=== PATIENT | female | born 1970 | race Caucasian/White ===

== ENCOUNTER 2017-08-01 14:52 | Emergency (ER) | payer MEDICAID ==
[~2017-08-01] VITALS: Ht 160 cm; Wt 66.0 kg
[2017-08-01] MEDS ORDERED: ONDANSETRON HCL 4MG/2ML VIAL IV ONE (15:45)
[2017-08-01] MEDS ORDERED: MORPHINE SULFATE 4 MG/ML CPJ (NOT FOR IM USE) IV ONE ×2 (15:45→19:00)
[2017-08-01 16:11] LABS: HEMATOCRIT. 33.3 % (36.0-48.0); HEMOGLOBIN. 10.6 g/dL (12.0-16.0); MEAN CORPUSCULAR HEMOGLOBIN 24.6 pg (28.0-32.0); MEAN CORPUSCULAR VOLUME 77.4 fL (81.0-99.0); MEAN PLATELET VOLUME 7.8 fl (7.4-10.4); PLATELET 301 x1000/uL (130-400); RED CELL DISTRIBUTION WIDTH 25.6 % (11.6-14.6)
[2017-08-01 16:17] LABS: CHLORIDE 109 mEq/L (98-107)
[2017-08-01 16:18] LABS: KETONES URINE NEGATIVE (NEGATIVE); LEUKOCYTE ESTERASE URINE 1+ (NEGATIVE); NITRITE URINE NEGATIVE (NEGATIVE); OCCULT BLOOD URINE 3+ (NEGATIVE); PROTEIN URINE 4+ (NEGATIVE); SPECIFIC GRAVITY URINE 1.035 (1.005-1.030); UROBILINOGEN URINE 0.2 E.U./dL (0.2-1.0)
[2017-08-01 16:21] LABS: COLOR URINE RED (YELLOW)
[2017-08-01 16:22] LABS: HCG SCREEN NEGATIVE
[2017-08-01 16:22] LABS: CLARITY URINE TURBID (CLEAR)
[2017-08-01 16:27] LABS: CARBON DIOXIDE 23 mEq/L (21-32)
[2017-08-01 17:17] LABS: PLATELET ESTIMATE NORMAL
[2017-08-01] MEDS ORDERED: ENOX100D4 SQ (19:59)
[2017-08-01] MEDS ORDERED: KETOROLAC 30MG/ML VIAL IV ONE (20:00)
[2017-08-01 21:55] VITALS: BP 107/50
== END 2017-08-01 22:02 | disposition home or self-care (01) ==
LOC: ER 15:18
DX: D25.9 Leiomyoma of uterus, unspecified (principal); N85.8 Other specified noninflammatory disorders of uterus
CPT/HCPCS: 36415; 76830; 76856; 80053; 81001; 84703; 85025; 96374; 96375; 96376; 99285; J1885; J2270; J2405; Z7610

== ENCOUNTER 2018-08-12 05:24 | Emergency (ER) | payer MEDICAID ==
[~2018-08-12] VITALS: Ht 165.1 cm; Wt 92.7 kg
[~2018-08-12 05:24] MED LIST: ENOX100D4 SQ
[2018-08-12] MEDS ORDERED: SODIUM CHLORIDE 0.9% 1,000 ML IV ONE (06:32)
[2018-08-12] MEDS ORDERED: KETOROLAC 30MG/ML VIAL IV ONE (06:45)
[2018-08-12 06:46] VITALS: BP 106/57
[2018-08-12 06:48] LABS: HEMATOCRIT. 31.3 % (36.0-48.0); HEMOGLOBIN. 9.6 g/dL (12.0-16.0); MEAN CORPUSCULAR HEMOGLOBIN 22.3 pg (28.0-32.0); MEAN CORPUSCULAR VOLUME 72.5 fL (81.0-99.0); MEAN PLATELET VOLUME 7.6 fl (7.4-10.4); PLATELET 348 x1000/uL (130-400); RED BLOOD CELL COUNT 4.32 mill/uL (4.2-5.4); RED CELL DISTRIBUTION WIDTH 18.7 % (11.6-14.6)
[2018-08-12 06:52] LABS: CHLORIDE 110 mEq/L (98-107)
[2018-08-12 06:55] LABS: INR 0.9; PARTIAL THROMBOPLASTIN TIME 23.3 sec (23.4-31.0); PROTHROMBIN TIME 9.5 sec (9.1-11.1)
[2018-08-12 06:58] LABS: HCG SCREEN NEGATIVE
[2018-08-12 07:09] LABS: CLARITY URINE CLEAR (CLEAR); COLOR URINE YELLOW (YELLOW); KETONES URINE NEGATIVE (NEGATIVE); LEUKOCYTE ESTERASE URINE NEGATIVE (NEGATIVE); NITRITE URINE NEGATIVE (NEGATIVE); OCCULT BLOOD URINE TRACE (NEGATIVE); PH URINE 6.5 (4.5-8.0); PROTEIN URINE TRACE (NEGATIVE); SPECIFIC GRAVITY URINE 1.015 (1.005-1.030); UROBILINOGEN URINE 0.2 E.U./dL (0.2-1.0)
[2018-08-12 07:21] LABS: PLATELET ESTIMATE NORMAL
== END 2018-08-12 10:20 | disposition home or self-care (01) ==
LOC: ER 06:09
DX: G89.29 Other chronic pain (principal); R10.9 Unspecified abdominal pain; R10.2 Pelvic and perineal pain; D64.9 Anemia, unspecified; E87.8 Other disorders of electrolyte and fluid balance, not elsewhere classified; D21.9 Benign neoplasm of connective and other soft tissue, unspecified; Z79.899 Other long term (current) drug therapy
CPT/HCPCS: 36415; 71045; 74177; 76830; 76856; 80053; 81003; 81025; 83690; 84703; 85025; 85610; 85730; 96374; 99284; J1885; J7030

== ENCOUNTER 2019-06-29 13:10 | Emergency (ER) | payer MEDICAID ==
[~2019-06-29] VITALS: Ht 157.5 cm; Wt 80.0 kg
[2019-06-29 13:20] VITALS: BP 135/67
[2019-06-29 14:00] LABS: HEMATOCRIT. 29.2 % (36.0-48.0); HEMOGLOBIN. 8.7 g/dL (12.0-16.0); MEAN CORPUSCULAR HEMOGLOBIN 18.8 pg (28.0-32.0); MEAN CORPUSCULAR VOLUME 62.7 fL (81.0-99.0); MEAN PLATELET VOLUME 8.4 fl (7.4-10.4); PLATELET 314 x1000/uL (130-400); RED BLOOD CELL COUNT 4.65 mill/uL (4.2-5.4)
[2019-06-29 14:06] LABS: CHLORIDE 107 mEq/L (98-107)
[2019-06-29 14:07] LABS: PROTHROMBIN TIME 10.3 sec (9.6-11.0)
[2019-06-29 14:56] LABS: PLATELET ESTIMATE NORMAL
[2019-06-29 16:01] LABS: CLARITY URINE CLEAR (CLEAR); COLOR URINE YELLOW (YELLOW); KETONES URINE NEGATIVE (NEGATIVE); LEUKOCYTE ESTERASE URINE NEGATIVE (NEGATIVE); NITRITE URINE NEGATIVE (NEGATIVE); OCCULT BLOOD URINE 3+ (NEGATIVE); PROTEIN URINE 1+ (NEGATIVE); SPECIFIC GRAVITY URINE 1.022 (1.005-1.030); UROBILINOGEN URINE 0.2 E.U./dL (0.2-1.0)
== END 2019-06-29 15:29 | disposition left against medical advice (07) ==
LOC: ER 13:10
DX: D25.9 Leiomyoma of uterus, unspecified (principal)
CPT/HCPCS: 36415; 81003; 99283

== ENCOUNTER 2020-02-17 13:30 | Emergency (ER) | payer MEDICAID ==
[~2020-02-17] VITALS: Ht 165.1 cm; Wt 80.0 kg
[2020-02-17 14:15] VITALS: BP 114/52
[2020-02-17] MEDS ORDERED: SODIUM CHLORIDE 0.9% 1,000 ML IV ONE (15:00)
[2020-02-17 15:28] LABS: CHLORIDE 110 mEq/L (98-107)
[2020-02-17 15:32] LABS: PROTHROMBIN TIME 10.8 sec (9.6-11.0)
[2020-02-17 15:37] LABS: CLARITY URINE CLEAR (CLEAR); COLOR URINE YELLOW (YELLOW); KETONES URINE TRACE (NEGATIVE); LEUKOCYTE ESTERASE URINE 1+ (NEGATIVE); NITRITE URINE NEGATIVE (NEGATIVE); OCCULT BLOOD URINE 3+ (NEGATIVE); PH URINE 5.5 (4.5-8.0); PROTEIN URINE 2+ (NEGATIVE); SPECIFIC GRAVITY URINE 1.025 (1.005-1.030)
[2020-02-17 15:47] LABS: BASOPHILS % 0.7 % (0.0-2.0); EOSINOPHILS % 0.7 % (0.0-5.0); LYMPHOCYTES % 7.3 % (20.0-50.0); MEAN CORPUSCULAR VOLUME 65.1 fL (81.0-99.0); MEAN PLATELET VOLUME 8.3 fl (7.4-10.4); MONOCYTES % 3.1 % (2.0-8.0); NEUTROPHILS % 88.2 % (40.0-76.0); PLATELET 284 x1000/uL (130-400); RED BLOOD CELL COUNT 2.93 mill/uL (4.2-5.4)
[2020-02-17 15:51] LABS: HEMATOCRIT. 19.1 % (36.0-48.0); HEMOGLOBIN. 5.9 g/dL (12.0-16.0)
[2020-02-17 16:10] LABS: *AMPHETAMINES SCREEN URINE NEGATIVE (NEGATIVE); *BARBITURATES SCREEN URINE NEGATIVE (NEGATIVE); *COCAINE SCREEN URINE NEGATIVE (NEGATIVE)
[2020-02-17 16:11] LABS: *BENZODIAZEPINES SCREEN URINE NEGATIVE (NEGATIVE); METHADONE URINE SCREEN NEGATIVE (NEGATIVE); OPIATES URINE SCREEN NEGATIVE (NEGATIVE)
[2020-02-17 16:12] LABS: CANNABINOID URINE SCREEN NEGATIVE (NEGATIVE); PHENCYCLIDINE URINE SCREEN NEGATIVE (NEGATIVE)
[2020-02-17 17:45] LABS: PLATELET ESTIMATE NORMAL
== END 2020-02-17 16:38 | disposition left against medical advice (07) ==
LOC: ER 13:38 → CANBEDREQ 16:45
DX: N93.8 Other specified abnormal uterine and vaginal bleeding (principal); D25.9 Leiomyoma of uterus, unspecified; N17.0 Acute kidney failure with tubular necrosis; E87.6 Hypokalemia; N20.0 Calculus of kidney; D63.8 Anemia in other chronic diseases classified elsewhere; E88.09 Other disorders of plasma-protein metabolism, not elsewhere classified
CPT/HCPCS: 36415; 80053; 80305; 81003; 85025; 99283